=== PATIENT | female | born 1985 | race Two or more races ===

== ENCOUNTER 2017-03-11 16:14 | Emergency (ER) | payer OTHER ==
[2017-03-11 16:30] VITALS: TEMP 97.3; BMI 24.6
--- NOTE | 2017-03-11 16:39 | PDOC ---
History of Present Illness - General History Source: Patient Exam Limitations: No Limitations <Randy Parker - Last Filed: 03/11/17 16:55> <Daya Hua - Last Filed: 03/11/17 19:48> - General Chief Complaint: Lightheaded Stated Complaint: DIZZINESS/6 MONTH Time Seen by Provider: 03/11/17 16:36 - History of Present Illness Initial Comments: 03/11/17 16:55 The patient is a 31 year old female , who is currently 30 weeks with no significant past medical history who presents to the emergency department with dizziness and lightheadedness. The patient also reports having a brief episode of intermittent SOB and palpitations for about 30 minutes after walking. She reports having similar episodes like these about 2-3 times. She denies recent fevers, chills, or headache. She denies recent nausea, vomit, diarrhea or constipation. She denies recent chest pain. She denies any vaginal bleeding or cramping. Allergies: NKA Past surgical history: None reported. Social history: Nonsmoker. Denies EtOH use and recreational drug use. (Randy Parker) Past History <Randy Parker - Last Filed: 03/11/17 16:55> - Past Medical History Other medical history: DENIES. - Psycho/Social/Smoking Cessation Hx Suicidal Ideation: No Smoking History: Never smoked <Daya Hua - Last Filed: 03/11/17 19:48> - Past Medical History Allergies/Adverse Reactions: Allergies Allergy/AdvReac Type Severity Reaction Status Date / Time No Known Allergies Allergy Verified 03/11/17 16:27 Home Medications: Ambulatory Orders Calcium Carbonate [Tums] 200 mg PO ASDIR 03/11/17 Iron 18 mg PO DAILY 03/11/17 Multivitamin [Poly-Vitamin] 1 each PO DAILY 03/11/17 Review of Systems - Review of Systems Able to Perform ROS?: Yes <Randy Parker - Last Filed: 03/11/17 16:55> <Daya Hua - Last Filed: 03/11/17 19:48> - Review of Systems Comments:: 03/11/17 16:55 CONSTITUTIONAL: Absent: fever, chills, diaphoresis, generalized weakness, malaise, loss of appetite HEENT: Absent: rhinorrhea, nasal congestion, throat pain, throat swelling, difficulty swallowing, mouth swelling, ear pain, eye pain, visual Changes CARDIOVASCULAR: Absent: chest pain, syncope, palpitations, irregular heart rate, lightheadedness , peripheral edema RESPIRATORY: +shortness of breath. Absent: cough, dyspnea with exertion, orthopnea, wheezing , stridor, hemoptysis GASTROINTESTINAL: Absent: abdominal pain, abdominal distension, nausea, vomiting, diarrhea, constipation, melena, hematochezia GENITOURINARY: Absent: dysuria, frequency, urgency, hesitancy, hematuria, flank pain, genital pain MUSCULOSKELETAL: Absent: myalgia, arthralgia, joint swelling SKIN: Absent: rash, itching, pallor HEMATOLOGIC/IMMUNOLOGIC: Absent: easy bleeding, easy bruising, lymphadenopathy, frequent infections ENDOCRINE: Absent: unexplained weight gain, unexplained weight loss, heat intolerance, cold intolerance NEUROLOGIC: +dizziness and lightheadedness. Absent: headache, focal weakness or paresthesias , unsteady gait, seizure, mental status changes, bladder or bowel incontinence PSYCHIATRIC: Absent: anxiety, depression, suicidal or homicidal ideation, hallucinations. (Randy Parker) *Physical Exam <Randy Parker - Last Filed: 03/11/17 16:55> <Daya Hua - Last Filed: 03/11/17 19:48> - Vital Signs Last Vital Signs Temp Pulse Resp BP Pulse Ox 97.3 F L 98 H 20 109/84 100 03/11/17 16:27 03/11/17 17:27 03/11/17 17:27 03/11/17 17:27 03/11/17 17:27 - Physical Exam Comments: 03/11/17 16:55 GENERAL: Well developed, well nourished. Awake and alert. No acute distress. HEENT: Normocephalic, atraumatic. PERRLA, EOMI. No conjunctival pallor. Sclera are non- icteric. Moist mucous membranes. Oropharynx is clear. NECK: Supple. Full ROM. No JVD. Carotid pulses 2+ and symmetric, without bruits. No thyromegaly. No lymphadenopathy. CARDIOVASCULAR: Regular rate and rhythm. No murmurs, rubs, or gallops. Distal pulses are 2+ and symmetric. PULMONARY: No evidence of respiratory distress. Lungs clear to auscultation bilaterally. No wheezing, rales or rhonchi. ABDOMINAL: +Turbulent belly. Soft. Non-tender. No rebound or guarding. No organomegaly. Normoactive bowel sounds. MUSCULOSKELETAL Normal range of motion at all joints. No bony deformities or tenderness. No CVA tenderness. EXTREMITIES: No cyanosis. No clubbing. No edema. No calf tenderness. SKIN: Warm and dry. Normal capillary refill. No rashes. No jaundice. NEUROLOGICAL: Alert, awake, appropriate. Cranial nerves 2-12 intact. No deficits to light touch and temperature in face, upper extremities and lower extremities. No motor deficits in the in face, upper extremities and lower extremities. Normoreflexic in the upper and lower extremities. Normal speech. Toes are down- going bilaterally. Gait is normal without ataxia. PSYCHIATRIC: Cooperative. Good eye contact. Appropriate mood and affect. (Randy Parker) ED Treatment Course - LABORATORY CBC & Chemistry Diagram: 03/11/17 16:53 03/11/17 18:30 <Daya Hua - Last Filed: 03/11/17 19:48> - ADDITIONAL ORDERS Additional order review: Laboratory Results 03/11/17 03/11/17 03/11/17 18:30 18:30 16:53 INR D-Dimer < 200 Sodium 136 Potassium 4.2 Chloride 103 Carbon Dioxide 25 Anion Gap 8 BUN 8 Creatinine 0.5 L Creat Clearance w eGFR > 60 Random Glucose 102 Calcium 8.3 L Total Bilirubin 0.4 AST 19 ALT 13 Alkaline Phosphatase 74 Creatine Kinase Troponin I Total Protein 6.0 L Albumin 3.0 L Urine Color Yellow Urine Appearance Clear Urine pH 7.0 Urine Protein Negative Urine Glucose (UA) Negative Urine Ketones Negative Urine Blood Negative Urine Nitrite Negative Urine Bilirubin Negative Urine Urobilinogen Negative Ur Leukocyte Esterase Trace H Urine RBC 1 Urine WBC 3 Ur Epithelial Cells Rare Urine Mucus Few Blood Type Antibody Screen 03/11/17 03/11/17 03/11/17 16:53 16:53 16:50 INR 0.94 D-Dimer Sodium Cancelled Potassium Cancelled Chloride Cancelled Carbon Dioxide Cancelled Anion Gap Cancelled BUN Cancelled Creatinine Cancelled Creat Clearance w eGFR Cancelled Random Glucose Cancelled Calcium Cancelled Total Bilirubin Cancelled AST Cancelled ALT Cancelled Alkaline Phosphatase Cancelled Creatine Kinase Cancelled Troponin I Cancelled Total Protein Cancelled Albumin Cancelled Urine Color Urine Appearance Urine pH Urine Protein Urine Glucose (UA) Urine Ketones Urine Blood Urine Nitrite Urine Bilirubin Urine Urobilinogen Ur Leukocyte Esterase Urine RBC Urine WBC Ur Epithelial Cells Urine Mucus Blood Type O POSITIVE Antibody Screen Negative 03/11/17 16:53 RBC 4.34 MCV 88.6 MCHC 33.5 RDW 13.8 MPV 11.0 Neutrophils % 70.3 Lymphocytes % 23.1 Monocytes % 5.7 Eosinophils % 0.5 Basophils % 0.4 - Medications Given in the ED: ED Medications Discontinued Medications Generic Name Dose Route Start Last Admin Trade Name Freq PRN Reason Stop Dose Admin Sodium Chloride 1,000 mls @ 1,000 mls/hr 03/11/17 17:10 03/11/17 17:22 Normal Saline - IV 03/11/17 18:09 1,000 mls/hr ASDIR STA Administration Medical Decision Making <Randy Parker - Last Filed: 03/11/17 16:55> <Daya Hua - Last Filed: 03/11/17 19:48> - Medical Decision Making 03/11/17 18:36 31-year-old female who is 30 weeks was walking and developed palpitations and felt short of breath. This happened 3 times before during this SHE DENIES ANY CHEST PAIN This is her first . . She is 1 para 0 Past surgical history -denies Past medical history -denies Allergies to medications,- denies Social history -she is , does not smoke or drink. ekg sinus tachycardia @ 115 bpm REVIEW OF LABS: mild leukocytosis cbc 13, no anemia,normal platelet count NEGATIVE D DIMER CHEMISTRIES_ electrolytes and glucose are wnl treatment- pt recieved IVfluids 03/11/17 19:26 spoke w L and D and we will discharge her from ER and send her for monitoring (Daya Hua) *DC/Admit/Observation/Transfer <Randy Parker - Last Filed: 03/11/17 16:55> <Daya Hua - Last Filed: 03/11/17 19:48> Diagnosis at time of Disposition: Shortness of breath - Discharge Dispostion Disposition: HOME Condition at time of disposition: Stable - Patient Instructions Printed Discharge Instructions: DI for Shortness of Breath, DI for - - Discomforts and Remedies Additional Instructions: please followup with your digital experience manager return for any worsening symptoms - Attestations Scribe Attestion: 03/11/17 16:55 Documentation prepared by Randy Parker, acting as medical cash poster for Daya Hua MD. (Keith,Randy)
[2017-03-11 17:02] LABS: BASOPHIL 0.4 % (0-2.0); EOSINOPHIL 0.5 % (0-4.5); MCH 29.7 pg (25.7-33.7); MCHC 33.5 g/dl (32.0-36.0); MEAN CELL VOLUME 88.6 fl (80-96); NEUTROPHILS 70.3 % (42.8-82.8); PLATELET COUNT 136 K/MM3 (134-434); RDW 13.8 % (11.6-15.6)
[2017-03-11] MEDS ORDERED: SODIUM CHLORIDE 1,000 ML IV STA (17:10)
[2017-03-11 17:14] LABS: INR 0.94 (0.82-1.09); PROTHROMBIN TIME (PATIENT) 10.3 SEC (9.98-11.88)
[2017-03-11 17:28] VITALS: BP 109/84; PULSE 98
[2017-03-11 18:42] LABS: URINE APPEARANCE CLEAR; URINE BILIRUBIN NEGATIVE (NEGATIVE); URINE BLOOD NEGATIVE (NEGATIVE); URINE COLOR YELLOW; URINE GLUCOSE (UA) NEGATIVE (NEGATIVE); URINE KETONE NEGATIVE (NEGATIVE); URINE NITRITE NEGATIVE (NEGATIVE); URINE PROTEIN NEGATIVE (NEGATIVE); URINE UROBILINOGEN NEGATIVE E.U./dl (0.2-1.0)
[2017-03-11 18:55] LABS: URINE LEUK ESTERASE TRACE (NEGATIVE)
[2017-03-11 18:56] LABS: URINE MUCUS FEW; URINE RBC 1 /hpf (0-3); URINE WBC 3 /hpf (3-5)
[2017-03-11 19:06] LABS: ALK PHOS 74 U/L (45-117); ANION GAP 8 (8-16); BILIRUBIN,TOTAL 0.4 mg/dL (0.2-1.0); CALCIUM 8.3 mg/dL (8.5-10.1); CO2 25 mmol/L (21-32); COCKROFT - GAULT 175.9415; CREATININE 0.5 mg/dL (0.55-1.02); GLUCOSE,RANDOM 102 mg/dL (74-106); SGOT/AST 19 U/L (15-37); SGPT/ALT 13 U/L (12-78)
--- NOTE | 2017-03-12 10:33 | EKG ---
Test Reason : Blood Pressure : / mmHG Vent. Rate : 115 BPM Atrial Rate : 115 BPM P-R Int : 116 ms QRS Dur : 062 ms QT Int : 302 ms P-R-T Axes : 064 052 010 degrees QTc Int : 417 ms SINUS TACHYCARDIA OTHERWISE NORMAL ECG NO PREVIOUS ECGS AVAILABLE Confirmed by LYDIA BUSH MD ([id number]) on 03/12/2017 10:33:33 AM Referred By: Confirmed By:LYDIA BUSH MD
== END 2017-03-26 11:34 | disposition home or self-care (01) ==
LOC: JER 16:14
PROC: 3E0337Z Introduction of Electrolytic and Water Balance Substance into Peripheral Vein, Percutaneous Approach (ICD-10-PCS; principal; 2017-03-11)
DX: O26.893 Other specified pregnancy related conditions, third trimester (principal); R06.02 Shortness of breath; Z3A.30 30 weeks gestation of pregnancy
CPT/HCPCS: 36415; 80053; 81003; 81015; 85025; 85379; 85610; 86850; 86900; 86901; 93005; 93010; 96360; 99284-25

== ENCOUNTER 2017-05-12 09:05 | Inpatient (IN) | payer OTHER ==
[2017-05-12 10:22] LABS: BASOPHIL 0.6 % (0-2.0); EOSINOPHIL 0.9 % (0-4.5); MCH 30.4 pg (25.7-33.7); MCHC 34.6 g/dl (32.0-36.0); MEAN PLT VOLUME 13.8 fl (7.5-11.1); NEUTROPHILS 51.8 % (42.8-82.8); RDW 13.1 % (11.6-15.6); WHITE BLOOD COUNT 8.7 K/mm3 (4.0-10.0)
[2017-05-12 10:34] LABS: URINE COLLECTION TIME 24 HOURS
[2017-05-12 10:44] LABS: INR 0.83 (0.82-1.09); PROTHROMBIN TIME (PATIENT) 9.1 SEC (9.98-11.88)
[2017-05-12 10:45] LABS: URIC ACID 4.9 mg/dL (2.6-7.2)
[2017-05-12 10:47] LABS: ACTIVATED PTT 27.2 SECONDS (26.9-34.4); ALBUMIN 2.5 g/dl (3.4-5.0); ALK PHOS 191 U/L (45-117); ANION GAP 9 (8-16); BILIRUBIN,TOTAL 0.3 mg/dL (0.2-1.0); CALCIUM 9.3 mg/dL (8.5-10.1); CO2 25 mmol/L (21-32); CREATININE 0.6 mg/dL (0.55-1.02); GLUCOSE,RANDOM 73 mg/dL (74-106); SGOT/AST 36 U/L (15-37); SGPT/ALT 25 U/L (12-78); TOT PROT 5.8 g/dl (6.4-8.2)
[2017-05-12 10:51] VITALS: BMI 26.1
[2017-05-12 10:51] LABS: URINE PROTEIN 129 mg/dl
[2017-05-12 10:53] LABS: URINE CREATININE 29.9 mg/dL (20-320)
[2017-05-12 10:54] LABS: CREATININE 0.6 mg/dL (0.55-1.02)
[2017-05-12] MEDS ORDERED: DINOPROSTONE 10 MG VAGINAL SUPPOSITORY VG ONE (11:02)
[2017-05-12] MEDS ORDERED: PROMETHAZINE HCL 25 MG/1 ML VIAL IVPUSH ONE (11:03)
[2017-05-12] MEDS ORDERED: BUTORPHANOL TARTRATE 1 MG/ML VIAL IVPUSH ONE (11:03)
[2017-05-12] MEDS ORDERED: LABETALOL HCL 100 MG TABLET (FP) PO ONE (11:04)
--- NOTE | 2017-05-12 11:18 | PN ---
Progress Note (short form) - Note Progress Note: cx 1 cm 25 vx -2 mi, fhr cat 1, irregular contraction, cervidil rba discussed. no headache , cervidil inserted
[2017-05-12] MEDS: DEXTROSE 5%-LACTATED RINGERS 1,000 ML IV SCH ×2 (11:30→18:10)
[2017-05-12 11:50] LABS: PLATELET COUNT 73 K/MM3 (134-434)
[2017-05-12] MEDS ORDERED: LABETALOL HCL 200 MG TABLET (FP) PO ONE (16:42)
[2017-05-12] MEDS ORDERED: LABETALOL HCL 200 MG TABLET (FP) PO STA (16:42)
--- NOTE | 2017-05-12 16:51 | HP ---
Past Medical History - Primary Care Physician PCP:: Darrick Leslie - Admission Chief Complaint: 38 weeks, PIH History of Present Illness: 31 yo f edc 05/22/17 38 weeks admitted with elevated BP and thrombocytopenia, proteinuria, , bp 132/102, no headache, no blurred vision, no RUQ pain History Source: Patient Limitations to Obtaining History: No Limitations - Past Medical History ...: 1 ...Para: 0 ...Term: 0 ...: 0 ...Spon : 0 ...Induced : 0 ...Multiple Gestation: 0 ...LMP: 08/19/16 ... Weeks Gestation by Dates: 38.0 ...EDC by Dates: 05/26/17 ...EDC by Sono: 05/22/17 - Past Surgical History Hx Myomectomy: No Hx Transabdominal Cerclage: No - Smoking History Smoking history: Never smoked Have you smoked in the past 12 months: No - Alcohol/Substance Use Hx Alcohol Use: No - Social History Usual Living Arrangement: Yes: Alone History of Recent Travel: No Home Medications - Allergies Allergies/Adverse Reactions: Allergies Allergy/AdvReac Type Severity Reaction Status Date / Time No Known Allergies Allergy Verified 05/12/17 11:12 - Home Medications Home Medications: Ambulatory Orders Iron 18 mg PO DAILY 03/11/17 Multivitamin [Poly-Vitamin] 1 each PO DAILY 03/11/17 Review of Systems - Review of Systems Constitutional: reports: No Symptoms Eyes: reports: No Symptoms HENT: reports: No Symptoms Neck: reports: No Symptoms Cardiovascular: reports: No Symptoms Respiratory: reports: No Symptoms Genitourinary: reports: No Symptoms Breasts: reports: No Symptoms Reported Musculoskeletal: reports: No Symptoms Integumentary: reports: No Symptoms Neurological: reports: No Symptoms Endocrine: reports: No Symptoms Hematology/Lymphatic: reports: No Symptoms Psychiatric: reports: No Symptoms Physical Exam - Maternity Vital Signs: Vital Signs Temperature 98.4 F 05/12/17 16:00 Pulse Rate 63 05/12/17 16:00 Respiratory Rate 18 05/12/17 16:00 Blood Pressure 154/97 05/12/17 16:00 O2 Sat by Pulse Oximetry (%) Constitutional: Yes: Well Nourished, No Distress, Calm Eyes: Yes: WNL, Conjunctiva Clear, EOM Intact HENT: Yes: WNL, Atraumatic, Normocephalic Neck: Yes: WNL, Supple, Trachea Midline Cardiovascular: Yes: WNL, Regular Rate and Rhythm Breast(s): Yes: WNL - Abdominal Exam/OB Fundal Height: 40 Number of Fetuses: Single Presentation: Vertex Contractions: Yes Regularity: Irregular Intensity: Unaware Monitor Mode: External Heart Rate Location: [facility] Category: I Accelerations: Uniform - Vaginal Exam/OB Vaginal Bleediing: No Speculum Exam: No Dilatation (cm): 1 cm Effacement (%): 25 Amniotic Membrane Status: Intact Presentation: Vertex/Position Station: -2 - Physical Exam Musculoskeletal: Yes: WNL Extremities: Yes: WNL Edema: No Edema: LLE: Trace, RLE: Trace Deep Tendon Reflex Grade: Normal +2 ...Motor Strength: WNL - Labs Lab Results: CBC, BMP 05/12/17 10:00 05/12/17 10:00 Problem List - Problems (1) with 38 completed weeks gestation Code(s): Z3A.38 - 38 WEEKS GESTATION OF (2) HELLP (hemolytic anemia/elev liver enzymes/low platelets in ) Code(s): O14.20 - HELLP SYNDROME (HELLP), UNSPECIFIED TRIMESTER Qualifiers: Trimester: third trimester Qualified Code(s): O14.23 - HELLP syndrome (HELLP), third trimester Assessment/Plan admit, monitor bp, , cervidil induction, labatalol prn, if symptomatic mgso4
--- NOTE | 2017-05-12 19:23 | PN ---
Progress Note (short form) - Note Progress Note: cx 1 cm 70 vx -2mi, fhr cat 1 ,no headache, no blurred visio , bp 143/98 plan cont monitor bp, cont induction Problem List - Problems (1) with 38 completed weeks gestation Code(s): Z3A.38 - 38 WEEKS GESTATION OF (2) HELLP (hemolytic anemia/elev liver enzymes/low platelets in ) Code(s): O14.20 - HELLP SYNDROME (HELLP), UNSPECIFIED TRIMESTER Qualifiers: Trimester: third trimester Qualified Code(s): O14.23 - HELLP syndrome (HELLP), third trimester
[2017-05-12] MEDS ORDERED: MAGNESIUM 4GM/H20 - 100 ML IVPB ONE (21:45)
[2017-05-12] MEDS ORDERED: DEXTROSE 5%-LACTATED RINGERS 1,000 ML IV SCH (21:45)
[2017-05-12] MEDS: MAGNESIUM SULFATE 20GM/500ML - 500 ML IVPB SCH ×2 (21:45→22:15)
[2017-05-12] MEDS: LABETALOL HCL 200 MG TABLET (FP) PO PRN (22:45)
[2017-05-13] MEDS ORDERED: NIFEdipine 10 MG CAPSULE (FP) PO ONE ×2 (00:30→13:00)
[2017-05-13] MEDS ORDERED: DEXTROSE 5%-LACTATED RINGERS 1,000 ML IV SCH ×3 (06:30→22:00)
[2017-05-13] MEDS: LABETALOL HCL 200 MG TABLET (FP) PO PRN ×2 (08:05→16:30)
--- NOTE | 2017-05-13 09:21 | PN ---
Progress Note (short form) - Note Progress Note: no head ache, no blurred vision, on Mg , cx 2 cm 75 vx -2 mi, fhr cat i. irregular contraction, will start on pitocin Last Vital Signs Temp Pulse Resp BP Pulse Ox 98.2 F 80 17 121/82 05/13/17 09:00 05/13/17 09:00 05/13/17 09:00 05/13/17 09:00 Problem List - Problems (1) with 38 completed weeks gestation Code(s): Z3A.38 - 38 WEEKS GESTATION OF (2) HELLP (hemolytic anemia/elev liver enzymes/low platelets in ) Code(s): O14.20 - HELLP SYNDROME (HELLP), UNSPECIFIED TRIMESTER Qualifiers: Trimester: third trimester Qualified Code(s): O14.23 - HELLP syndrome (HELLP), third trimester
[2017-05-13] MEDS ORDERED: OXYTOCIN 15 UNITS/ LR 250 ML 250 ML IVPB SCH (10:30)
[2017-05-13 12:28] LABS: BASOPHIL 0.4 % (0-2.0); EOSINOPHIL 0.3 % (0-4.5); MCH 30.3 pg (25.7-33.7); MCHC 34.2 g/dl (32.0-36.0); MEAN CELL VOLUME 88.7 fl (80-96); MEAN PLT VOLUME 12.2 fl (7.5-11.1); NEUTROPHILS 69.2 % (42.8-82.8); RDW 13.4 % (11.6-15.6); WHITE BLOOD COUNT 8.8 K/mm3 (4.0-10.0)
[2017-05-13 13:00] LABS: ALBUMIN 2.5 g/dl (3.4-5.0); ALK PHOS 191 U/L (45-117); ANION GAP 8 (8-16); BILIRUBIN,TOTAL 0.3 mg/dL (0.2-1.0); CALCIUM 8.2 mg/dL (8.5-10.1); CO2 24 mmol/L (21-32); CREATININE 0.6 mg/dL (0.55-1.02); GLUCOSE,RANDOM 86 mg/dL (74-106); SGOT/AST 35 U/L (15-37); SGPT/ALT 24 U/L (12-78); TOT PROT 5.9 g/dl (6.4-8.2)
[2017-05-13 13:20] LABS: PLATELET COMMENT2 NO CLOTTING DETECTED; PLATELET COUNT 62 K/MM3 (134-434); PLATELET ESTIMATE DECREASED (NORMAL)
[2017-05-13] MEDS ORDERED: CITRIC ACID/SODIUM CITRATE 30 ML UNIT-DOSE CUP PO ONE (19:30)
--- NOTE | 2017-05-13 19:30 | PN ---
Progress Note (short form) - Note Progress Note: cx 2 cm 75 vx -2 mi, bp cont to rise despite mgso4, procardia, [place] [address]. no dilation ,having regular strong contraction, advised c/s, rba discussed Problem List - Problems (1) with 38 completed weeks gestation Code(s): Z3A.38 - 38 WEEKS GESTATION OF (2) HELLP (hemolytic anemia/elev liver enzymes/low platelets in ) Code(s): O14.20 - HELLP SYNDROME (HELLP), UNSPECIFIED TRIMESTER Qualifiers: Trimester: third trimester Qualified Code(s): O14.23 - HELLP syndrome (HELLP), third trimester
[2017-05-13 19:51] LABS: BASOPHIL 0.7 % (0-2.0); EOSINOPHIL 0.2 % (0-4.5); MCHC 33.7 g/dl (32.0-36.0); MEAN PLT VOLUME 13.1 fl (7.5-11.1); NEUTROPHILS 77.5 % (42.8-82.8); PLATELET COUNT 62 K/MM3 (134-434); RDW 13.6 % (11.6-15.6)
[2017-05-13 20:50] LABS: PLATELET COMMENT2 NO CLUMPING NOTED; PLATELET COMMENT3 FEW GIANT PLTS; PLATELET ESTIMATE ADEQUATE (NORMAL)
[2017-05-13] MEDS ORDERED: morphine SULFATE/Preservative Free 0.5 MG/ML (1cc Syringe) SPIN ONE (20:53)
[2017-05-13] MEDS ORDERED: ONDANSETRON 4 MG/2 ML VIAL IVPB PRN (21:23)
[2017-05-13] MEDS ORDERED: IBUPROFEN 600 MG TABLET (FP) PO PRN (21:23)
[2017-05-13 21:34] LABS: ARTERIAL BLD GAS O2 SATURATION 21.2 % (90-98.9); ARTERIAL BLOOD GAS BASE EXCESS 0.4 meq/l (-2-2); ARTERIAL BLOOD GAS HCO3 28.2 meq/L (22-26); ARTERIAL BLOOD GAS pH 7.28 (7.35-7.45)
[2017-05-13 21:36] LABS: ARTERIAL BLOOD GAS PO2 15.1 mmHg (80-100)
[2017-05-13 21:40] LABS: VENOUS PH 7.37 (7.32-7.42)
[2017-05-13 21:41] LABS: VENOUS BLOOD GAS HCO3 26.7 meq/L (19-25)
[2017-05-13] MEDS ORDERED: BENZOCAINE 20% 57 GM BOTTLE TP PRN (21:46)
[2017-05-13] MEDS ORDERED: WITCH HAZEL 50% (TUCKS) 40 PAD/JAR PAD TP PRN (21:46)
[2017-05-13] MEDS ORDERED: BENZOCAINE 28 GM HEMORRHOIDAL OINTMENT PR PRN (21:46)
[2017-05-13] MEDS ORDERED: oxyCODONE HCL 5 MG TABLET PO PRN (21:46)
[2017-05-13] MEDS ORDERED: METHYLERGONOVINE MALEATE 0.2 MG/1 ML AMP IM PRN (21:46)
[2017-05-13] MEDS ORDERED: diphenhydrAMINE HCL 25 MG CAPSULE (FP) PO PRN (21:46)
[2017-05-13] MEDS ORDERED: LABETALOL HCL 200 MG TABLET (FP) PO PRN (21:53)
[2017-05-13] MEDS ORDERED: OXYTOCIN 20 UNITS in 0.9% NS 1,000 ML IV SCH ×2 (22:00→23:00)
[2017-05-13] MEDS: MAGNESIUM SULFATE 20GM/500ML - 500 ML IVPB SCH (23:15)
[2017-05-14] MEDS: ACETAMINOPHEN 1000 MG/100 ML VIAL (NON FORMULARY) IVPB PRN ×2 (01:20→11:30)
[2017-05-14] MEDS: CEFAZOLIN (PRE-DOCKED) 50 ML IVPB SCH ×2 (02:00→10:00)
[2017-05-14] MEDS ORDERED: NIFEdipine E.R. 30 MG TABLET (FP) PO ONE (02:45)
[2017-05-14 07:12] LABS: BASOPHIL 0.2 % (0-2.0); EOSINOPHIL 0.1 % (0-4.5); MCH 30.5 pg (25.7-33.7); MCHC 34.3 g/dl (32.0-36.0); MEAN PLT VOLUME 11.7 fl (7.5-11.1); NEUTROPHILS 73.8 % (42.8-82.8); RDW 13.8 % (11.6-15.6)
[2017-05-14 07:37] LABS: ALBUMIN 1.9 g/dl (3.4-5.0); ANION GAP 9 (8-16); CALCIUM 7.1 mg/dL (8.5-10.1); CO2 25 mmol/L (21-32); GLUCOSE,RANDOM 78 mg/dL (74-106); SGOT/AST 127 U/L (15-37); SGPT/ALT 61 U/L (12-78)
[2017-05-14 07:39] LABS: ALK PHOS 150 U/L (45-117); BILIRUBIN,TOTAL 0.5 mg/dL (0.2-1.0); CREATININE 0.7 mg/dL (0.55-1.02); TOT PROT 4.6 g/dl (6.4-8.2)
[2017-05-14] MEDS: LABETALOL HCL 200 MG, LABETALOL HCL 100 MG PO PRN ×2 (07:40→22:04)
[2017-05-14 08:57] LABS: BASOPHIL 0.3 % (0-2.0); EOSINOPHIL 0.2 % (0-4.5); MCH 30.1 pg (25.7-33.7); MCHC 33.7 g/dl (32.0-36.0); MEAN CELL VOLUME 89.3 fl (80-96); MEAN PLT VOLUME 12.4 fl (7.5-11.1); NEUTROPHILS 72.4 % (42.8-82.8); RDW 13.9 % (11.6-15.6); WHITE BLOOD COUNT 13.9 K/mm3 (4.0-10.0)
[2017-05-14 09:20] LABS: ALBUMIN 2.2 g/dl (3.4-5.0); ALK PHOS 155 U/L (45-117); ANION GAP 10 (8-16); BILIRUBIN,TOTAL 0.5 mg/dL (0.2-1.0); CALCIUM 7.1 mg/dL (8.5-10.1); CO2 25 mmol/L (21-32); CREATININE 0.7 mg/dL (0.55-1.02); GLUCOSE,RANDOM 76 mg/dL (74-106); MAGNESIUM 5.6 mg/dL (1.8-2.4); SGOT/AST 131 U/L (15-37); SGPT/ALT 64 U/L (12-78)
--- NOTE | 2017-05-14 10:44 | CON.NEP ---
Consult Consult Specialty:: Nephrology (Lv/Dominic) Referred by:: Dr. Davila Reason for Consultation:: Hypertension - History of Present Illness Chief Complaint: /Hypertension History of Present Illness: 31 year old woman with no signficant PMhx presents at 38 weeks gestation with elevated BP and found to have HELLP syndrome now s/p with continued hypertension. Pt denies any Hx of hypertension and was not on antihypertensive meds. Denies any family Hx of hypertension. No NSAID use, no tobacco. S/p Mg Sulfate IV, Labetalol and Nifedipine. Gained 30 lbs during . No GARCIA, chest pain, seizures, ABd pain, N/V/D. - History Source History Provided By: Patient Limitations to Obtaining History: No Limitations - Alcohol/Substance Use Hx Alcohol Use: No - Smoking History Smoking history: Never smoked Have you smoked in the past 12 months: No - Social History History of Recent Travel: No Home Medications - Allergies Allergies/Adverse Reactions: Allergies Allergy/AdvReac Type Severity Reaction Status Date / Time No Known Allergies Allergy Verified 05/12/17 11:12 - Home Medications Home Medications: Ambulatory Orders Iron 18 mg PO DAILY 03/11/17 Multivitamin [Poly-Vitamin] 1 each PO DAILY 03/11/17 Family Disease History - Family Disease History Family History: Unremarkable Review of Systems - Review of Systems Constitutional: denies: Chills, Fever, Lethargy, Loss of Appetite, Malaise Eyes: reports: No Symptoms HENT: reports: No Symptoms Neck: reports: No Symptoms Cardiovascular: reports: No Symptoms Respiratory: reports: No Symptoms Gastrointestinal: reports: No Symptoms Genitourinary: reports: No Symptoms Neurological: reports: No Symptoms Endocrine: reports: No Symptoms Nephrology Consult - Height Height: 5 ft 5 in - Weight Weight: 157 lb - BMI Body Mass Index (BMI): 26.1 - Lab Results CBC,BMP: CBC, BMP 05/14/17 08:50 05/14/17 08:50 Anion Gap: Anion Gap Anion Gap 10 (8-16) 05/14/17 08:50 - Physical Examination Vital Signs: Vital Signs Temperature 98.9 F 05/14/17 08:00 Pulse Rate 77 05/14/17 09:00 Respiratory Rate 18 05/14/17 09:00 Blood Pressure 121/79 05/14/17 09:00 O2 Sat by Pulse Oximetry (%) 99 05/13/17 22:30 Constitutional: Yes: No Distress, Calm Eyes: Yes: Conjunctiva Clear HENT: Yes: Atraumatic, Normocephalic Neck: Yes: Supple Cardiovascular: Yes: Regular Rate and Rhythm, S1, S2. No: Bruit, JVD, Murmur, Rub Respiratory: Yes: Regular, CTA Bilaterally. No: Cough, Rales, SOB, SOB on Exertion Gastrointestinal: Yes: Normal Bowel Sounds, Soft. No: Tenderness Edema: Yes Edema: LLE: Trace, RLE: Trace Neurological: Yes: Alert, Oriented Problem List - Problems (1) HELLP (hemolytic anemia/elev liver enzymes/low platelets in ) Code(s): O14.20 - HELLP SYNDROME (HELLP), UNSPECIFIED TRIMESTER Qualifiers: Trimester: third trimester Qualified Code(s): O14.23 - HELLP syndrome (HELLP), third trimester (2) with 38 completed weeks gestation Code(s): Z3A.38 - 38 WEEKS GESTATION OF (3) hypertension Code(s): O16.5 - UNSPECIFIED MATERNAL HYPERTENSION, COMP THE PUERPERIUM Assessment/Plan 31 year old woman with no signficant PMhx presents at 38 weeks gestation with elevated BP and found to have HELLP syndrome now s/p with continued hypertension. # Hypertension/HELLP Syndrome (Thrombocytopenia/Elevated Liver Enzymes /Proteinuria) s/p C section last night already treated with IV mag Continue Labetalol 300mg Q6h PRN for SBP > 140 or DBP > 90 Low salt diet Avoid NSAIDs Trend BP Trend Plt counts and LFT's no acute indication for transfusion pain cotrol Thank you Jostin Alfaro DO
[2017-05-14 10:46] LABS: PLATELET COUNT 51 K/MM3 (134-434); PLATELET ESTIMATE DECREASED (NORMAL)
[2017-05-14 10:47] LABS: PLATELET COUNT 53 K/MM3 (134-434); PLATELET ESTIMATE DECREASED (NORMAL)
--- NOTE | 2017-05-14 11:01 | PN ---
Progress Note (short form) - Note Progress Note: Post op day#1.S/P C section under spinal anesthesia with duramorph uneventful.Patient stable and has little pain for which she is on medication.No any anesthesia related problem.Patient DC from the anesthesia care.
--- NOTE | 2017-05-14 14:34 | PN ---
Progress Note (short form) - Note Progress Note: pod 1 severe pih, HELLP syndrome, no c/o no headache, no blurred vision, CBC, BMP 05/14/17 08:50 05/14/17 08:50 Last Vital Signs Temp Pulse Resp BP Pulse Ox 98.1 F 66 18 126/83 99 05/14/17 14:06 05/14/17 14:06 05/14/17 14:06 05/14/17 14:06 05/13/17 22:30 abdomen soft, mild incisional tenderness , no RUQ tenderness ,BS present incision dry, clean, no oozing no excess vaginal bleeding impression, HELLP, BP stablizing, thrombocytopenia , no active bleeding , repeat cbc in am monitor BP Problem List - Problems (1) with 38 completed weeks gestation Code(s): Z3A.38 - 38 WEEKS GESTATION OF (2) HELLP (hemolytic anemia/elev liver enzymes/low platelets in ) Code(s): O14.20 - HELLP SYNDROME (HELLP), UNSPECIFIED TRIMESTER Qualifiers: Trimester: third trimester Qualified Code(s): O14.23 - HELLP syndrome (HELLP), third trimester
[2017-05-14] MEDS: oxyCODONE HCL 5 MG TABLET PO PRN ×2 (17:23→22:07)
[2017-05-14] MEDS: ACETAMINOPHEN 325 MG TABLET (FP) PO PRN ×2 (17:23→22:09)
[2017-05-14] MEDS: SIMETHICONE 80 MG TAB.CHEW (FP) PO PRN (17:24)
[2017-05-14] MEDS ORDERED: BISACODYL 10 MG SUPP.RECT RC PRN (21:49)
[2017-05-15] MEDS: LABETALOL HCL 200 MG, LABETALOL HCL 100 MG PO PRN ×3 (06:14→22:20)
[2017-05-15] MEDS: SIMETHICONE 80 MG TAB.CHEW (FP) PO PRN ×2 (07:32→17:10)
[2017-05-15] MEDS: oxyCODONE HCL 5 MG TABLET PO PRN ×2 (07:32→17:10)
[2017-05-15] MEDS: ACETAMINOPHEN 325 MG TABLET (FP) PO PRN ×2 (07:32→17:11)
[2017-05-15 08:17] LABS: BASOPHIL 0.4 % (0-2.0); EOSINOPHIL 0.6 % (0-4.5); MCH 30.2 pg (25.7-33.7); MCHC 33.7 g/dl (32.0-36.0); MEAN CELL VOLUME 89.8 fl (80-96); NEUTROPHILS 75.7 % (42.8-82.8); PLATELET COUNT 61 K/MM3 (134-434); RDW 13.7 % (11.6-15.6); WHITE BLOOD COUNT 12.9 K/mm3 (4.0-10.0)
[2017-05-15 08:27] LABS: MAGNESIUM 2.8 mg/dL (1.8-2.4)
[2017-05-15 10:00] LABS: ALBUMIN 1.8 g/dl (3.4-5.0); ALK PHOS 141 U/L (45-117); ANION GAP 9 (8-16); BILIRUBIN,TOTAL 0.4 mg/dL (0.2-1.0); CALCIUM 7.4 mg/dL (8.5-10.1); CO2 23 mmol/L (21-32); CREATININE 0.5 mg/dL (0.55-1.02); GLUCOSE,RANDOM 71 mg/dL (74-106); SGOT/AST 56 U/L (15-37); SGPT/ALT 37 U/L (12-78); TOT PROT 4.7 g/dl (6.4-8.2)
[2017-05-15] MEDS ORDERED: DIPHTH,PERTUSS(ACELL),TET 0.5 ML DISP.SYRIN IM ONE (10:00)
--- NOTE | 2017-05-15 13:09 | OP ---
DATE OF OPERATION: 05/13/2017 PREOPERATIVE DIAGNOSIS: , 38 weeks, severe preeclampsia with HELLP (hemolysis, elevated liver enzymes, and low platelet count) syndrome, failure of Cervidil and Pitocin induction. POSTOPERATIVE DIAGNOSIS: , 38 weeks, severe preeclampsia with HELLP (hemolysis, elevated liver enzymes, and low platelet count) syndrome, failure of Cervidil and Pitocin induction. PROCEDURE: Primary low segment transverse section. SURGEON: Darrick Leslie MD ECONOMETRICS PROFESSOR: AUTUMN Schulz ANESTHESIA: Spinal. ANESTHESIOLOGIST: Diallo Edwards MD ESTIMATED BLOOD LOSS: 500 mL. FINDING: Live baby boy, Apgars 9 and 9. OPERATION: The patient was taken to the operating room, had adequate spinal anesthesia. Abdomen and perineum were prepped and draped. Pfannenstiel abdominal skin incision was made. Abdominal wall was cut layer by layer, until peritoneum was exposed and incised. Upon entering the abdominal cavity, lower uterine segment was identified, and uterovesical fold of peritoneum was established, bladder was pushed down. Then, with the lower blade of the Kevin retractor in the pelvis, a low transverse uterine incision was made. Incision extended laterally. Amniotic sac was entered. Minimal fluid was seen, clear fluid. Head delivered, nasopharynx was suctioned, and live baby boy was delivered. Placenta was delivered manually. Uterine cavity was cleaned of all remaining tissue. Uterine incision was closed in 2 layers, 1st layer with 0 Biosyn continuous suture, the 2nd layer with 0 Biosyn imbricating the 1st layer. Bladder flap was closed with 0 Biosyn continuous suture. Both tubes and ovaries were checked, were normal. No active bleeding was seen. All the lap pad, sponge, and instrument counts were correct. Peritoneum was closed with 0 Biosyn continuous suture, muscles were brought together with interrupted sutures of 0 Biosyn, fascia was closed with 0 Biosyn continuous suture, subcutaneous fat with interrupted suture of 0 Biosyn, and the skin was closed with aurelia. Patient tolerated the procedure well, left the OR in good condition. Grabiel [id number]
--- NOTE | 2017-05-15 13:26 | PN ---
Progress Note (short form) - Note Progress Note: Renal Follow up for hypertension Pt seen and examined at the bedside no acute complaints BP was above goal this am, required PO labetalol no dizziness, lightheadedness, GARCIA, chest pain Vital Signs Temperature 98.9 F 05/15/17 06:00 Pulse Rate 78 05/15/17 06:05 Respiratory Rate 18 05/15/17 06:05 Blood Pressure 142/91 05/15/17 06:05 O2 Sat by Pulse Oximetry (%) 99 05/13/17 22:30 Intake & Output 05/12/17 05/13/17 05/14/17 05/15/17 23:59 23:59 23:59 23:59 Intake Total 1625 3873 1315 Output Total 850 3500 1660 Balance 775 373 -345 Weight 157 lb 157 lb Gen: NAD Ext: Trace edema CBC, BMP 05/15/17 07:50 05/15/17 07:50 Current Medications Acetaminophen (Tylenol -) 650 mg PO Q4H PRN PRN Reason: FEVER OR PAIN Last Admin: 05/15/17 07:32 Dose: 650 mg Benzocaine (Americaine Ointment -) 1 applic [place] PRN PRN PRN Reason: PAIN Benzocaine (Americaine 20% [place] -) 1 spray TP PRN PRN PRN Reason: PAIN Bisacodyl (Dulcolax Suppository -) 10 mg RC PRN PRN PRN Reason: CONSTIPATION Diphenhydramine HCl (Benadryl Injection -) 25 mg IVPUSH Q4H PRN PRN Reason: Pruritis Diphenhydramine HCl (Benadryl -) 25 mg PO Q8H PRN PRN Reason: FOR ITCHING Last Admin: 05/14/17 22:07 Dose: 25 mg Dextrose/Lactated Ringer's (D5-Lr -) 1,000 mls @ 125 mls/hr IV ASDIR NATHALIE Ibuprofen (Motrin -) 600 mg PO Q4H PRN PRN Reason: PAIN Labetalol HCl 200 mg/ (Labetalol HCl 100 mg) 300 mg PO Q6H PRN PRN Reason: BP > 140/90 Last Admin: 05/15/17 06:14 Dose: 300 mg Methylergonovine Maleate (Methergine Injection -) 0.2 mg IM Q4H PRN PRN Reason: EXCESSIVE BLEEDING Oxycodone HCl (Roxicodone -) 5 mg PO Q4H PRN PRN Reason: PAIN LEVEL 1-5 Last Admin: 05/15/17 07:32 Dose: 5 mg Oxycodone HCl (Roxicodone -) 10 mg PO Q4H PRN PRN Reason: PAIN LEVEL 6-10 Senna/Docusate Sodium (Pericolace -) 2 tablet PO HS PRN PRN Reason: CONSTIPATION Simethicone (Mylicon -) 80 mg PO Q4H PRN PRN Reason: GAS Last Admin: 05/15/17 07:32 Dose: 80 mg Witch Ellie/Glycerin (Tucks Pads -) 1 pad TP PRN PRN PRN Reason: PAIN a/P 31 year old woman with no signficant PMhx presents at 38 weeks gestation with elevated BP and found to have HELLP syndrome now s/p with continued hypertension. # Hypertension/HELLP Syndrome (Thrombocytopenia/Elevated Liver Enzymes /Proteinuria) s/p C section, now POD #2 BP above gaol this am continue Labetalol 300mg Q6h PRN LFTs improving plt counts still low but stable continue inpatient monitoring Thank you Jostin Alfaro DO Problem List - Problems (1) HELLP (hemolytic anemia/elev liver enzymes/low platelets in ) Code(s): O14.20 - HELLP SYNDROME (HELLP), UNSPECIFIED TRIMESTER Qualifiers: Trimester: third trimester Qualified Code(s): O14.23 - HELLP syndrome (HELLP), third trimester (2) with 38 completed weeks gestation Code(s): Z3A.38 - 38 WEEKS GESTATION OF (3) hypertension Code(s): O16.5 - UNSPECIFIED MATERNAL HYPERTENSION, COMP THE PUERPERIUM
[2017-05-15] MEDS ORDERED: LABETALOL HCL 100 MG TABLET (FP) ONE (16:52)
[2017-05-15] MEDS ORDERED: LABETALOL HCL 200 MG TABLET (FP) ONE (16:52)
[2017-05-15] MEDS ORDERED: SENNOSIDES/DOCUSATE COMBO (SENNA PLUS) TABLET (UD) PO PRN (22:00)
[2017-05-16] MEDS ORDERED: LABETALOL HCL 100 MG TABLET (FP) ONE ×3 (05:38→20:56)
[2017-05-16] MEDS ORDERED: LABETALOL HCL 200 MG TABLET (FP) ONE ×3 (05:38→20:57)
[2017-05-16] MEDS: LABETALOL HCL 200 MG, LABETALOL HCL 100 MG PO PRN ×3 (05:49→21:04)
[2017-05-16] MEDS: oxyCODONE HCL 5 MG TABLET PO PRN ×2 (07:56→16:46)
[2017-05-16] MEDS: ACETAMINOPHEN 325 MG TABLET (FP) PO PRN ×2 (07:58→16:46)
[2017-05-16] MEDS: SIMETHICONE 80 MG TAB.CHEW (FP) PO PRN ×2 (07:59→16:47)
[2017-05-16 08:30] LABS: BASOPHIL 0.5 % (0-2.0); EOSINOPHIL 1.2 % (0-4.5); MCH 30.6 pg (25.7-33.7); MCHC 33.9 g/dl (32.0-36.0); MEAN CELL VOLUME 90.3 fl (80-96); MEAN PLT VOLUME 11.4 fl (7.5-11.1); PLATELET COUNT 77 K/MM3 (134-434); RDW 13.7 % (11.6-15.6); WHITE BLOOD COUNT 9.9 K/mm3 (4.0-10.0)
--- NOTE | 2017-05-16 12:06 | PN ---
Post Progress Note - Subjective Subjective: 31 yo Para 1, status post primary , seen and evaluated. She denies any headache, abdominal pain nor blurry vision. Blood pressure is still elevated. Post Day: 3 Type of Delivery: Primary C/S Vital Signs: Vital Signs Temperature 99.5 F 05/16/17 07:45 Pulse Rate 79 05/16/17 07:45 Respiratory Rate 20 05/16/17 07:45 Blood Pressure 132/85 05/16/17 07:47 O2 Sat by Pulse Oximetry (%) 99 05/13/17 22:30 Breast Exam: Yes: Soft Uterus: Yes: Fundus Firm Incision: Yes: [place] intact Abdomen/GI: Yes: Abdomen soft, Tolerating PO Lochia: Yes: Rubra Lochia, amount: Small Extremities: Yes: Calves non-tender Perineum: Yes: Intact Activity: Ambulating - Labs Labs: CBC WBC 9.9 K/mm3 (4.0-10.0) 05/16/17 07:00 RBC 3.40 M/mm3 (3.60-5.2) L 05/16/17 07:00 Hgb 10.4 GM/dL (10.7-15.3) L 05/16/17 07:00 Hct 30.7 % (32.4-45.2) L 05/16/17 07:00 MCV 90.3 fl (80-96) 05/16/17 07:00 MCH 30.6 pg (25.7-33.7) 05/16/17 07:00 MCHC 33.9 g/dl (32.0-36.0) 05/16/17 07:00 RDW 13.7 % (11.6-15.6) 05/16/17 07:00 Plt Count 77 K/MM3 (134-434) L D 05/16/17 07:00 MPV 11.4 fl (7.5-11.1) H 05/16/17 07:00 Neutrophils % 75.0 % (42.8-82.8) 05/16/17 07:00 Lymphocytes % 17.0 % (8-40) 05/16/17 07:00 Monocytes % 6.3 % (3.8-10.2) 05/16/17 07:00 Eosinophils % 1.2 % (0-4.5) D 05/16/17 07:00 Basophils % 0.5 % (0-2.0) 05/16/17 07:00 Differential Comment Slide scanned 05/13/17 12:15 Platelet Estimate Decreased (NORMAL) 05/14/17 08:50 Platelet Comment No clumping noted 05/14/17 08:50 Platelet Comment No clumping noted 05/13/17 19:40 Retic Count 2.56 % (0.5-1.5) H 05/12/17 10:15 Haptoglobin < 10 mg/dL (34-200) L 05/12/17 10:00 Problem List - Problems (1) Status post primary low transverse section Code(s): Z98.891 - HISTORY OF UTERINE SCAR FROM PREVIOUS SURGERY Assessment/Plan Status post primary Status post HELLP syndrome Management as per Nephrology Consider D/C home with Labetalol in am.
--- NOTE | 2017-05-16 12:17 | PN ---
Progress Note (short form) - Note Progress Note: Renal Follow up for hypertension Pt seen and examined at the bedside no acute complaints BP elevated this am, got Labetalol at 5:30 am no syed, chest pain, sob, blurry vision Vital Signs Temperature 99.5 F 05/16/17 07:45 Pulse Rate 79 05/16/17 07:45 Respiratory Rate 20 05/16/17 07:45 Blood Pressure 132/85 05/16/17 07:47 O2 Sat by Pulse Oximetry (%) 99 05/13/17 22:30 Intake & Output 05/13/17 05/14/17 05/15/17 05/16/17 23:59 23:59 23:59 23:59 Intake Total 3873 1315 480 520 Output Total 3500 1660 1900 800 Balance 373 -942 -9050 -280 Weight 157 lb Gen: NAD Ext: Trace edema CBC, BMP 05/16/17 07:00 05/15/17 07:50 Laboratory Tests 05/15/17 14:20 Magnesium 2.7 H Current Medications Acetaminophen (Tylenol -) 650 mg PO Q4H PRN PRN Reason: FEVER OR PAIN Last Admin: 05/16/17 07:58 Dose: 650 mg Benzocaine (Americaine Ointment -) 1 applic [place] PRN PRN PRN Reason: PAIN Benzocaine (Americaine 20% [place] -) 1 spray TP PRN PRN PRN Reason: PAIN Bisacodyl (Dulcolax Suppository -) 10 mg RC PRN PRN PRN Reason: CONSTIPATION Diphenhydramine HCl (Benadryl Injection -) 25 mg IVPUSH Q4H PRN PRN Reason: Pruritis Diphenhydramine HCl (Benadryl -) 25 mg PO Q8H PRN PRN Reason: FOR ITCHING Last Admin: 05/14/17 22:07 Dose: 25 mg Ibuprofen (Motrin -) 600 mg PO Q4H PRN PRN Reason: PAIN Labetalol HCl 200 mg/ (Labetalol HCl 100 mg) 300 mg PO Q6H PRN PRN Reason: BP > 140/90 Last Admin: 05/16/17 05:49 Dose: 300 mg Methylergonovine Maleate (Methergine Injection -) 0.2 mg IM Q4H PRN PRN Reason: EXCESSIVE BLEEDING Oxycodone HCl (Roxicodone -) 5 mg PO Q4H PRN PRN Reason: PAIN LEVEL 1-5 Last Admin: 05/16/17 07:56 Dose: 5 mg Oxycodone HCl (Roxicodone -) 10 mg PO Q4H PRN PRN Reason: PAIN LEVEL 6-10 Senna/Docusate Sodium (Pericolace -) 2 tablet PO HS PRN PRN Reason: CONSTIPATION Last Admin: 05/15/17 21:32 Dose: 2 tablet Simethicone (Mylicon -) 80 mg PO Q4H PRN PRN Reason: GAS Last Admin: 05/16/17 07:59 Dose: 80 mg Witch Ellie/Glycerin (Tucks Pads -) 1 pad TP PRN PRN PRN Reason: PAIN a/P 31 year old woman with no signficant PMhx presents at 38 weeks gestation with elevated BP and found to have HELLP syndrome now s/p with continued hypertension. # Hypertension/HELLP Syndrome (Thrombocytopenia/Elevated Liver Enzymes /Proteinuria) BP remains mildly elevated will continue Labetalol 300mg Q6h prn plan for discharge in AM on PO labetalol with outpatient monitoring LFT's improved, Plt count improved Thank you Jostin Alfaro DO Problem List - Problems (1) HELLP (hemolytic anemia/elev liver enzymes/low platelets in ) Code(s): O14.20 - HELLP SYNDROME (HELLP), UNSPECIFIED TRIMESTER Qualifiers: Trimester: third trimester Qualified Code(s): O14.23 - HELLP syndrome (HELLP), third trimester (2) with 38 completed weeks gestation Code(s): Z3A.38 - 38 WEEKS GESTATION OF (3) hypertension Code(s): O16.5 - UNSPECIFIED MATERNAL HYPERTENSION, COMP THE PUERPERIUM
[2017-05-17] MEDS ORDERED: LABETALOL HCL 200 MG TABLET (FP) ONE (07:26)
[2017-05-17] MEDS ORDERED: LABETALOL HCL 100 MG TABLET (FP) ONE (07:26)
[2017-05-17] MEDS: SIMETHICONE 80 MG TAB.CHEW (FP) PO PRN (07:29)
[2017-05-17] MEDS: LABETALOL HCL 200 MG, LABETALOL HCL 100 MG PO PRN (07:29)
[2017-05-17] MEDS: ACETAMINOPHEN 325 MG TABLET (FP) PO PRN (07:29)
[2017-05-17 07:35] VITALS: TEMP 98.3
--- NOTE | 2017-05-17 10:53 | PN ---
Progress Note (short form) - Note Progress Note: Renal Follow up for hypertension Pt seen and examined at the bedside no complaints required labetalol this am and yesterday evening no GARCIA, dizziness, cp, sob, N/v Vital Signs Temperature 98.3 F 05/17/17 07:34 Pulse Rate 83 05/17/17 07:34 Respiratory Rate 18 05/17/17 07:34 Blood Pressure 141/98 05/17/17 07:34 O2 Sat by Pulse Oximetry (%) 99 05/13/17 22:30 Gen: NAD Ext: Trace edema CBC, BMP 05/16/17 07:00 05/15/17 07:50 Current Medications Acetaminophen (Tylenol -) 650 mg PO Q4H PRN PRN Reason: FEVER OR PAIN Last Admin: 05/17/17 07:29 Dose: 650 mg Benzocaine (Americaine Ointment -) 1 applic RI PRN PRN PRN Reason: PAIN Benzocaine (Americaine 20% [place] -) 1 spray TP PRN PRN PRN Reason: PAIN Bisacodyl (Dulcolax Suppository -) 10 mg RC PRN PRN PRN Reason: CONSTIPATION Diphenhydramine HCl (Benadryl Injection -) 25 mg IVPUSH Q4H PRN PRN Reason: Pruritis Diphenhydramine HCl (Benadryl -) 25 mg PO Q8H PRN PRN Reason: FOR ITCHING Last Admin: 05/14/17 22:07 Dose: 25 mg Ibuprofen (Motrin -) 600 mg PO Q4H PRN PRN Reason: PAIN Labetalol HCl 200 mg/ (Labetalol HCl 100 mg) 300 mg PO Q6H PRN PRN Reason: BP > 140/90 Last Admin: 05/17/17 07:29 Dose: 300 mg Methylergonovine Maleate (Methergine Injection -) 0.2 mg IM Q4H PRN PRN Reason: EXCESSIVE BLEEDING Senna/Docusate Sodium (Pericolace -) 2 tablet PO HS PRN PRN Reason: CONSTIPATION Last Admin: 05/15/17 21:32 Dose: 2 tablet Simethicone (Mylicon -) 80 mg PO Q4H PRN PRN Reason: GAS Last Admin: 05/17/17 07:29 Dose: 80 mg Witch Ellie/Glycerin (Tucks Pads -) 1 pad TP PRN PRN PRN Reason: PAIN a/P 31 year old woman with no signficant PMhx presents at 38 weeks gestation with elevated BP and found to have HELLP syndrome now s/p with continued hypertension. # Hypertension/HELLP Syndrome (Thrombocytopenia/Elevated Liver Enzymes /Proteinuria) LFTs and Plt counts improved pt is cleared to be discharged home with oral labetalol 300mg TID will follow as an outpatient and titrate medication low salt diet avoid nsaids office contact information provided Thank you Jostin Alfaro DO Problem List - Problems (1) HELLP (hemolytic anemia/elev liver enzymes/low platelets in ) Code(s): O14.20 - HELLP SYNDROME (HELLP), UNSPECIFIED TRIMESTER Qualifiers: Trimester: third trimester Qualified Code(s): O14.23 - HELLP syndrome (HELLP), third trimester (2) with 38 completed weeks gestation Code(s): Z3A.38 - 38 WEEKS GESTATION OF (3) hypertension Code(s): O16.5 - UNSPECIFIED MATERNAL HYPERTENSION, COMP THE PUERPERIUM
[2017-05-17 10:58] VITALS: BP 135/97; PULSE 74
--- NOTE | 2017-05-17 12:23 | PN ---
Post Progress Note - Subjective Subjective: no c/o headache incision pain 4-5/10 scale pt requests for discharge today Type of Delivery: Primary C/S Vital Signs: Vital Signs Temperature 98.3 F 05/17/17 07:34 Pulse Rate 74 05/17/17 10:57 Respiratory Rate 18 05/17/17 10:57 Blood Pressure 135/97 05/17/17 10:57 O2 Sat by Pulse Oximetry (%) 99 05/13/17 22:30 Breast Exam: Yes: Soft. No: Engorged Uterus: Yes: Fundus Firm, Fundus below umbilicus Incision: Yes: Other ([place] removed, wound healing satisfactory . steri strips used. nooozing. Edges well approximated). No: Redness, Oozing Abdomen/GI: Yes: Abdomen soft, Tender, Passing flatus, Tolerating PO (diet ). No: Abdominal Distention Lochia: Yes: Rubra Lochia, amount: Moderate Extremities: Yes: Calves non-tender Perineum: Yes: Intact Activity: Ambulating - Labs Labs: CBC WBC 9.9 K/mm3 (4.0-10.0) 05/16/17 07:00 RBC 3.40 M/mm3 (3.60-5.2) L 05/16/17 07:00 Hgb 10.4 GM/dL (10.7-15.3) L 05/16/17 07:00 Hct 30.7 % (32.4-45.2) L 05/16/17 07:00 MCV 90.3 fl (80-96) 05/16/17 07:00 MCH 30.6 pg (25.7-33.7) 05/16/17 07:00 MCHC 33.9 g/dl (32.0-36.0) 05/16/17 07:00 RDW 13.7 % (11.6-15.6) 05/16/17 07:00 Plt Count 77 K/MM3 (134-434) L D 05/16/17 07:00 MPV 11.4 fl (7.5-11.1) H 05/16/17 07:00 Neutrophils % 75.0 % (42.8-82.8) 05/16/17 07:00 Lymphocytes % 17.0 % (8-40) 05/16/17 07:00 Monocytes % 6.3 % (3.8-10.2) 05/16/17 07:00 Eosinophils % 1.2 % (0-4.5) D 05/16/17 07:00 Basophils % 0.5 % (0-2.0) 05/16/17 07:00 Differential Comment Slide scanned 05/13/17 12:15 Platelet Estimate Decreased (NORMAL) 05/14/17 08:50 Platelet Comment No clumping noted 05/14/17 08:50 Platelet Comment No clumping noted 05/13/17 19:40 Retic Count 2.56 % (0.5-1.5) H 05/12/17 10:15 Haptoglobin < 10 mg/dL (34-200) L 05/12/17 10:00 Assessment/Plan s/p c/section, s/p HELLP syndrome , post op Hypertension on po labetalol Dr Alfaro ok fo discharge on po labetalol . he will send prescription for her discharge today follow in the clinic & with Dr Alfaro
--- NOTE | 2017-05-18 15:31 | PATH ---
Surgical Pathology Report Patient Name: CHEIKH JURADO [facility]. Rec. #: [id number] /Age/Gender: 1985 (Age: 31) / F Account: [id number] Location: [facility] OBS/CAR DETAILER Taken: 05/13/2017 Received: 05/14/2017 Reported: 05/18/2017 Physicians: Darrick Leslie M.D. Specimen(s) Received PLACENTA Clinical History , 38 weeks gestation, preeclampsia Final Diagnosis PLACENTA, DELIVERY: FOCALLY DISRUPTED THIRD TRIMESTER PLACENTA WITH INFARCT, THREE VESSEL UMBILICAL CORD AND UNREMARKABLE PLACENTAL MEMBRANES. Electronically Signed Cong Gonzáles M.D. Gross Description The specimen is received fresh labeled placenta and is a 444 gram, 16.0 x 14.0 x 2.3 cm. placenta with attached membranes and umbilical cord. The attached membranes are wong, translucent with focal opacities and insert marginally. The umbilical cord measures 21 cm. in length and averages 1 cm. in diameter. The cord inserts eccentrically, 1 cm. to the nearest margin. No true knots or strictures are identified. Cut surface of the umbilical cord reveals 3 vessels. The surface is kearney-blue with minimal fibrin deposition and appropriate caliber vessels. The maternal surface is red-brown with focal defects. Sectioning reveals a 1.7 cm in greatest dimension wong intraparenchymal lesion. The remaining placental parenchyma is red-brown and spongy. Rn Triage sections are submitted in 4 cassettes as follows: 1-membrane roll and umbilical cord; 2-lesion; 3-4-full thickness sections of placenta. 05/16/2017 [facility]05/16/2017
== END 2017-05-17 13:00 | disposition home or self-care (01) | DRG 540 ==
LOC: JDEL 09:05 → JLDR 09:47 → J3W 05-14 13:19
PROVIDERS: ADMIT Obstetrics & Gynecology; ATTEND Obstetrics & Gynecology
PROC: 10D00Z1 Extraction of Products of Conception, Low, Open Approach (ICD-10-PCS; principal; 2017-05-13)
PROC: 3E0P7GC Introduction of Other Therapeutic Substance into Female Reproductive, Via Natural or Artificial Opening (ICD-10-PCS; 2017-05-13)
DX: O14.23 HELLP syndrome (HELLP), third trimester (principal); O16.5 Unspecified maternal hypertension, complicating the puerperium; O14.93 Unspecified pre-eclampsia, third trimester; O61.0 Failed medical induction of labor; Z3A.38 38 weeks gestation of pregnancy; Z37.0 Single live birth
CPT/HCPCS: 36415; 36600; 80053; 82575; 82803; 82977; 83010; 83735; 84156; 84550; 85025; 85044; 85610; 85730; 86593; 86850; 86900; 86901; 88307-TC; 90715

== ENCOUNTER 2019-01-20 02:15 | Inpatient (IN) | payer OTHER ==
[2019-01-20] MEDS ORDERED: DEXTROSE 5%-LACTATED RINGERS 1,000 ML IV SCH ×2 (02:20→18:45)
[2019-01-20 03:38] LABS: BASO % 0.4 % (0-2.0); EOS % 0.5 % (0-4.5); HEMATOCRIT 35.7 % (32.4-45.2); HEMOGLOBIN 12.5 GM/dL (10.7-15.3); LYMPH % 25.3 % (8-40); MCH 30.7 pg (25.7-33.7); MCHC 35.1 g/dl (32.0-36.0); MEAN CELL VOLUME 87.7 fl (80-96); MEAN PLT VOLUME 11.4 fl (7.5-11.1); MONO % 6.9 % (3.8-10.2); NEUT % 66.9 % (42.8-82.8); PLATELET COUNT 117 K/MM3 (134-434); RBC 4.07 M/mm3 (3.60-5.2); WHITE BLOOD COUNT 11.2 K/mm3 (4.0-10.0)
[2019-01-20] MEDS ORDERED: BUTORPHANOL TARTRATE 1 MG/ML VIAL IVPUSH ONE (03:43)
[2019-01-20] MEDS ORDERED: PROMETHAZINE HCL 25 MG/1 ML VIAL IVPUSH ONE (03:43)
--- NOTE | 2019-01-20 03:51 | HP ---
Past Medical History - Primary Care Physician PCP:: Darrick Leslie - Admission Chief Complaint: 40.5 weeks, previous c/s, labor History of Present Illness: 33 yo f 40.5 weeks, with one LST c/s ,in labor cx 1 cm 80 , vx -3 mi , fhr cat1 , regular contraction q 2 min, requesting , risks of uterine rupture, and maternal risks discussed , repeat c/s also discussed History Source: Patient Limitations to Obtaining History: No Limitations - Past Medical History ...: 2 ...Para: 1 ...Term: 1 ...: 0 ...Spon : 0 ...Induced : 0 ...Multiple Gestation: 0 ... Weeks Gestation by Dates: 40.5 ...EDC by Sono: 01/15/19 Heme/Onc: Yes: Thrombocytopenia - Past Surgical History Past Surgical History: Yes: Hx Myomectomy: No Hx Transabdominal Cerclage: No - Smoking History Smoking history: Never smoked Have you smoked in the past 12 months: No - Alcohol/Substance Use Hx Alcohol Use: No - Social History History of Recent Travel: No Home Medications - Allergies Allergies/Adverse Reactions: Allergies Allergy/AdvReac Type Severity Reaction Status Date / Time No Known Allergies Allergy Verified 05/12/17 11:12 - Home Medications Home Medications: Ambulatory Orders Iron 18 mg PO DAILY 03/11/17 Multivitamin [Poly-Vitamin] 1 each PO DAILY 03/11/17 Acetaminophen [Tylenol .Regular Strength -] 650 mg PO Q4H PRN #30 tablet Review of Systems - Review of Systems Constitutional: reports: No Symptoms Eyes: reports: No Symptoms HENT: reports: No Symptoms Neck: reports: No Symptoms Cardiovascular: reports: No Symptoms Respiratory: reports: No Symptoms Gastrointestinal: reports: No Symptoms Genitourinary: reports: No Symptoms Breasts: reports: No Symptoms Reported Musculoskeletal: reports: No Symptoms Integumentary: reports: No Symptoms Neurological: reports: No Symptoms Endocrine: reports: No Symptoms Hematology/Lymphatic: reports: No Symptoms Psychiatric: reports: No Symptoms Physical Exam - Maternity Constitutional: Yes: Well Nourished, No Distress, Calm Eyes: Yes: WNL, Conjunctiva Clear, EOM Intact HENT: Yes: WNL, Atraumatic, Normocephalic Neck: Yes: WNL, Supple, Trachea Midline Cardiovascular: Yes: WNL, Regular Rate and Rhythm Breast(s): Yes: WNL - Abdominal Exam/OB Fundal Height: 40 Number of Fetuses: Single Presentation: Vertex Contractions: Yes Regularity: Regular Intensity: Mod/Strong Monitor Mode: External Heart Rate Location: [facility] Category: I Accelerations: Uniform Decelerations: None - Vaginal Exam/OB Vaginal Bleediing: No Speculum Exam: Yes Dilatation (cm): 1 to 2 Effacement (%): 80 Amniotic Membrane Status: Intact Presentation: Transverse/Shoulder - Physical Exam Musculoskeletal: Yes: WNL Extremities: Yes: WNL Edema: Yes Edema: LLE: Trace, RLE: Trace Deep Tendon Reflex Grade: Normal +2 Psychiatric: Yes: WNL - Labs Lab Results: CBC, BMP 01/20/19 03:15 Hemorrhage Risk Assessment - Risk Factors Medium Risk Factors: Yes: Prior , uterine surgery,or multiple laparotomies Risk Score: 1 Risk Level: Medium Risk Problem List - Problems (1) Postmaturity , 40-42 weeks gestation Code(s): O48.0 - POST-TERM (2) Previous section complicating , antepartum condition or complication Code(s): O34.219 - MATERNAL CARE FOR UNSP TYPE SCAR FROM PREVIOUS DEL (3) Thrombocytopenia Code(s): D69.6 - THROMBOCYTOPENIA, UNSPECIFIED (4) Labor established Code(s): [id number] - Assessment/Plan trial of , risks discussed , fully aware of all risks FHM pain management GBS negative
[2019-01-20 03:52] LABS: INR 0.88 (0.83-1.09); PROTHROMBIN TIME (PATIENT) 10.4 SEC (9.7-13.0)
[2019-01-20 04:03] LABS: ANION GAP 8 MMOL/L (8-16); BLOOD UREA NITROGEN 8 mg/dL (7-18); CALCIUM 8.4 mg/dL (8.5-10.1); CHLORIDE 106 mmol/L (98-107); CO2 21 mmol/L (21-32); CREATININE 0.4 mg/dL (0.55-1.3); GLUCOSE,RANDOM 83 mg/dL (74-106); POTASSIUM 3.7 mmol/L (3.5-5.1); SODIUM 136 mmol/L (136-145)
[2019-01-20 04:19] VITALS: BMI 25.0
[2019-01-20 06:27] LABS: COCAINE, UR NEGATIVE ng/ml (CUTOFF=300); METHADONE, UR NEGATIVE ng/ml (CUTOFF=300); OPIATES, URI NEGATIVE ng/ml (CUTOFF=300); PHENCYCLIDINE,URINE NEGATIVE ng/ml (CUTOFF=25); URINE AMPHETAMINES NEGATIVE ng/ml (CUTOFF=500); URINE BARBITURATES NEGATIVE ng/ml (CUTOFF=200); URINE BENZODIAZEPINES NEGATIVE ng/ml (CUTOFF=200)
[2019-01-20] MEDS ORDERED: ELECTROLYTE-148 SOLN 500 ML IV ONE (07:20)
[2019-01-20] MEDS ORDERED: FENTANYL/BUPIVACAINE/NS/PF - PCEA - 50 ML DISP.SYRIN EP ONE ×3 (07:30→15:57)
[2019-01-20] MEDS ORDERED: BUPIVACAINE HCL/PF 0.25% (2.5MG/ML) 10 ML VIAL ONE (07:39)
[2019-01-20] MEDS: ELECTROLYTE-148 SOLN 1,000 ML IV SCH (08:25)
[2019-01-20] MEDS ORDERED: NALOXONE HCL 0.4 MG/ML VIAL IVPUSH PRN (09:57)
[2019-01-20] MEDS ORDERED: FENTANYL/BUPIVACAINE/NS/PF - PCEA - 50 ML DISP.SYRIN EP SCH (10:00)
[2019-01-20] MEDS ORDERED: OXYTOCIN 30 UNITS in 0.9% NS 30 UNIT/500 ML INFUS.BAG IVPB ONE (13:41)
[2019-01-20] MEDS ORDERED: OXYTOCIN 30 UNITS in 0.9% NS 30 UNIT/500 ML INFUS.BAG IVPB SCH (15:30)
[2019-01-20] MEDS ORDERED: LIDOCAINE HCL 1% PRESERVATIVE FREE - 30ML VIAL ONE (16:15)
--- NOTE | 2019-01-20 16:32 | PN ---
Progress Note (short form) - Note Progress Note: 235 pm cx 8 cm , 100 vx -1 arom, clear, fhr cat 1, regular contraction Problem List - Problems (1) Postmaturity , 40-42 weeks gestation Code(s): O48.0 - POST-TERM (2) Previous section complicating , antepartum condition or complication Code(s): O34.219 - MATERNAL CARE FOR UNSP TYPE SCAR FROM PREVIOUS DEL (3) Thrombocytopenia Code(s): D69.6 - THROMBOCYTOPENIA, UNSPECIFIED (4) Labor established Code(s): [id number] -
--- NOTE | 2019-01-20 16:33 | PN ---
Progress Note (short form) - Note Progress Note: cx full 100 vx 0 mr, fhr cat 1 wants to push Problem List - Problems (1) Postmaturity , 40-42 weeks gestation Code(s): O48.0 - POST-TERM (2) Previous section complicating , antepartum condition or complication Code(s): O34.219 - MATERNAL CARE FOR UNSP TYPE SCAR FROM PREVIOUS DEL (3) Thrombocytopenia Code(s): D69.6 - THROMBOCYTOPENIA, UNSPECIFIED (4) Labor established Code(s): [id number] -
[2019-01-20] MEDS ORDERED: LIDO 2%/EPI 1:200000 PRESRVFRE (20 ML SDVIAL) ONE (17:26)
[2019-01-20] MEDS ORDERED: CITRIC ACID/SODIUM CITRATE 30 ML UNIT-DOSE CUP PO ONE (17:26)
--- NOTE | 2019-01-20 17:26 | PN ---
Progress Note (short form) - Note Progress Note: cx full 100 vx 0, op, no descent with pushing, variable decel with good recovery , advsied c/s Problem List - Problems (1) Postmaturity , 40-42 weeks gestation Code(s): O48.0 - POST-TERM (2) Previous section complicating , antepartum condition or complication Code(s): O34.219 - MATERNAL CARE FOR UNSP TYPE SCAR FROM PREVIOUS DEL (3) Thrombocytopenia Code(s): D69.6 - THROMBOCYTOPENIA, UNSPECIFIED (4) Labor established Code(s): [id number] -
[2019-01-20] MEDS ORDERED: morphine SULFATE/Preservative Free 0.5 MG/ML (1cc Syringe) ONE ×4 (17:35)
[2019-01-20] MEDS ORDERED: KETOROLAC TROMETHAMINE 30 MG/1 ML VIAL ONE (17:35)
[2019-01-20] MEDS ORDERED: ceFAZolin SODIUM 1 GM VIAL ONE (17:42)
[2019-01-20] MEDS ORDERED: PHENYLEPHRINE HCL 10 MG/1 ML SINGLE DOSE VIAL ONE (17:46)
[2019-01-20] MEDS ORDERED: BENZOCAINE 20% 57 GM BOTTLE TP PRN (18:35)
[2019-01-20] MEDS ORDERED: IBUPROFEN 600 MG TABLET (FP) PO PRN (18:35)
[2019-01-20] MEDS ORDERED: SIMETHICONE 80 MG TAB.CHEW (FP) PO PRN (18:35)
[2019-01-20] MEDS ORDERED: BENZOCAINE 28 GM HEMORRHOIDAL OINTMENT PR PRN (18:35)
[2019-01-20] MEDS ORDERED: IBUPROFEN 800 MG/8 ML IJ IVPB PRN (18:35)
[2019-01-20] MEDS ORDERED: oxyCODONE HCL 5 MG TABLET PO PRN ×2 (18:35)
[2019-01-20] MEDS ORDERED: WITCH HAZEL 50% (TUCKS) 40 PAD/JAR PAD TP PRN (18:35)
[2019-01-20] MEDS ORDERED: diphenhydrAMINE HCL 25 MG CAPSULE (FP) PO PRN (18:35)
[2019-01-20] MEDS ORDERED: ONDANSETRON 4 MG/2 ML VIAL IVPUSH PRN (18:44)
[2019-01-20] MEDS ORDERED: OXYTOCIN 20 UNITS in 0.9% NS 20 UNIT/1,000 ML INFUS.BAG IV SCH (18:45)
[2019-01-20 18:52] LABS: VENOUS PH 7.29 (7.31-7.41); VENOUS PO2 21.4 mmHg (30-40)
[2019-01-20] MEDS ORDERED: GENTAMICIN SO4 80 MG/2 ML VIAL ONE (20:59)
[2019-01-20] MEDS: GENTAMICIN 80 MG PREMIXED IVPB 80 MG/100 ML BAG IVPB SCH (21:00)
[2019-01-20] MEDS: METHYLERGONOVINE MALEATE 0.2 MG/1 ML AMP IM PRN (21:24)
[2019-01-21] MEDS: CEFAZOLIN 1 GM/D5W 1 GM/50 ML BAG IVPB SCH ×3 (01:37→17:24)
[2019-01-21] MEDS ORDERED: METHYLERGONOVINE MALEATE 0.2 MG/1 ML AMP IM ONE ×2 (01:50→06:00)
[2019-01-21] MEDS: METHYLERGONOVINE MALEATE 0.2 MG/1 ML AMP IM PRN (01:54)
[2019-01-21] MEDS: GENTAMICIN 80 MG PREMIXED IVPB 80 MG/100 ML BAG IVPB SCH ×3 (02:31→18:25)
[2019-01-21] MEDS ORDERED: DEXTROSE 5%-LACTATED RINGERS 1,000 ML IV SCH (02:45)
[2019-01-21 02:49] LABS: BASO % 0.2 % (0-2.0); EOS % 0.1 % (0-4.5); HEMATOCRIT 26.2 % (32.4-45.2); LYMPH % 11.6 % (8-40); MCH 30.3 pg (25.7-33.7); MCHC 34.4 g/dl (32.0-36.0); MEAN CELL VOLUME 88.2 fl (80-96); MEAN PLT VOLUME 11.2 fl (7.5-11.1); MONO % 6.2 % (3.8-10.2); NEUT % 81.9 % (42.8-82.8); PLATELET COUNT 88 K/MM3 (134-434); RBC 2.97 M/mm3 (3.60-5.2); RDW 14.3 % (11.6-15.6); WHITE BLOOD COUNT 12.7 K/mm3 (4.0-10.0)
[2019-01-21 07:17] LABS: BASO % 0.2 % (0-2.0); EOS % 0.1 % (0-4.5); HEMATOCRIT 24.4 % (32.4-45.2); HEMOGLOBIN 8.4 GM/dL (10.7-15.3); LYMPH % 11.8 % (8-40); MCH 30.3 pg (25.7-33.7); MCHC 34.5 g/dl (32.0-36.0); MEAN CELL VOLUME 87.9 fl (80-96); MEAN PLT VOLUME 10.7 fl (7.5-11.1); MONO % 5.4 % (3.8-10.2); NEUT % 82.5 % (42.8-82.8); PLATELET COUNT 81 K/MM3 (134-434); RBC 2.78 M/mm3 (3.60-5.2); RDW 14.4 % (11.6-15.6); WHITE BLOOD COUNT 11.3 K/mm3 (4.0-10.0)
[2019-01-21] MEDS: ACETAMINOPHEN 325 MG TABLET (FP) PO PRN ×4 (09:19→21:05)
[2019-01-21] MEDS: METHYLERGONOVINE MALEATE 0.2 MG TABLET (FP) PO SCH ×4 (09:37→22:32)
--- NOTE | 2019-01-21 09:37 | PN ---
Progress Note (short form) - Note Progress Note: POD s/p c/s with duramorph. Pt with some itching, but improved with benadryl. No anesthetic issues/complications
[2019-01-21] MEDS ORDERED: ENOXAPARIN NA (PORCINE) 40 MG/0.4 ML DISP.SYRIN SQ SCH (10:00)
[2019-01-21] MEDS ORDERED: oxyCODONE HCL 5 MG TABLET PO PRN (10:57)
--- NOTE | 2019-01-21 11:25 | PN ---
Progress Note (short form) - Note Progress Note: 230 am called to see patient post c/s , trickling blood from vagina, hx of thrombocytopenia patient seen and exam VSS , no dizziness ,awake and alert abdomen soft, uterus firm, lochia minimal pelvic exam approx. 200 cc blood clot removed from lower uterine segment, no more active bleeding seen methergine given im, iv pitocin at 150 cc /hr monitor cbc and platelets monitor VS Problem List - Problems (1) Postmaturity , 40-42 weeks gestation Code(s): O48.0 - POST-TERM (2) Previous section complicating , antepartum condition or complication Code(s): O34.219 - MATERNAL CARE FOR UNSP TYPE SCAR FROM PREVIOUS DEL (3) Thrombocytopenia Code(s): D69.6 - THROMBOCYTOPENIA, UNSPECIFIED (4) Labor established Code(s): [id number] -
--- NOTE | 2019-01-21 11:29 | PN ---
Progress Note (short form) - Note Progress Note: no c/o minimal vaginal bleeding, no active vaginal bleeding seen , no dizziness CBC, BMP 01/21/19 06:55 01/20/19 03:15 Last Vital Signs Temp Pulse Resp BP Pulse Ox 99.5 F 101 H 18 114/67 99 01/21/19 09:07 01/21/19 09:07 01/21/19 09:09 01/21/19 09:07 01/20/19 19:30 abdomen soft, no distension, no cva uterus firm , incision dry, clean lochia minimal , no active vaginal bleeding seen impression post c/s day 1 . thrombocytopenia anemia vss stable plan oob, observe , monitor cbc, platelets, if symptomatic or further decrease in H&H will transfuse Problem List - Problems (1) Postmaturity , 40-42 weeks gestation Code(s): O48.0 - POST-TERM (2) Previous section complicating , antepartum condition or complication Code(s): O34.219 - MATERNAL CARE FOR UNSP TYPE SCAR FROM PREVIOUS DEL (3) Thrombocytopenia Code(s): D69.6 - THROMBOCYTOPENIA, UNSPECIFIED (4) Labor established Code(s): [id number] -
--- NOTE | 2019-01-21 12:37 | OP ---
DATE OF OPERATION: 01/20/2019 PREOPERATIVE DIAGNOSIS: 40.5 weeks, previous section, failed vaginal after , failed descent in the 2nd stage of labor. POSTOPERATIVE DIAGNOSIS: 40.5 weeks, previous section, failed vaginal after , failed descent in the 2nd stage of labor. PROCEDURE: Repeat low segment transverse section. SURGEON: Darrick Leslie MD [employer] OPERATOR: AUTUMN Schulz ANESTHESIA: Epidural. ANESTHESIOLOGIST: Dr. Farley. ESTIMATED BLOOD LOSS: 700 mL. DESCRIPTION OF PROCEDURE: The patient was taken to the operating room under adequate epidural anesthesia. Abdomen and perineum were prepped and draped. Pfannenstiel abdominal skin incision was made. Abdominal wall was cut layer by layer until the peritoneum was exposed and incised. Upon entering the abdominal cavity, lower uterine segment was identified, and uterovesical fold of peritoneum established. Bladder was pushed down. There was some peritoneal adhesion to the right uterine sidewall. These adhesions were grasped with a Ronel clamp and cut and adhesions were lysed. Then the bladder was further pushed down. A low transverse uterine incision was made. Incision extended laterally. Amniotic sac was entered. Clear fluid. Baby's head was very low in the pelvis and difficulty encountered to pull the head up from the pelvic through the incision. Then the vaginal pressure upward was applied by the pharmacy affairs assistant, and the head was from the pelvis and easily delivered. Nasopharynx was suctioned. Cord around the neck x1. Live baby was delivered without any difficulty. Placenta was delivered manually. Uterine cavity was cleaned of all remaining tissue. Uterine incision was closed in 2 layers, the first layer with 0 Biosyn continuous suture, the second layer with 0 Biosyn imbricating the 1st layer. Bladder flap was closed with 0 Biosyn continuous suture. Both tubes and ovaries were checked and normal. No active bleeding seen. All of the lap pad, sponge, and instrument counts were correct. Peritoneum was closed with 0 Biosyn continuous suture. Muscles were brought together with interrupted sutures of 0 Biosyn. Fascia was closed with 0 Biosyn continuous suture, subcutaneous fat interrupted suture of 0 Biosyn and the skin was closed with aurelia. The patient tolerated the procedure well and left the OR in good condition. Grabiel [id number]
[2019-01-21] MEDS: oxyCODONE HCL 5 MG TABLET PO PRN (14:55)
[2019-01-21] MEDS ORDERED: BISACODYL 10 MG SUPP.RECT RC PRN (18:35)
[2019-01-22] MEDS: CEFAZOLIN 1 GM/D5W 1 GM/50 ML BAG IVPB SCH ×2 (02:27→09:39)
[2019-01-22] MEDS: METHYLERGONOVINE MALEATE 0.2 MG TABLET (FP) PO SCH ×2 (02:27→06:01)
[2019-01-22] MEDS: ACETAMINOPHEN 325 MG TABLET (FP) PO PRN ×3 (02:46→16:49)
[2019-01-22] MEDS: oxyCODONE HCL 5 MG TABLET PO PRN ×3 (02:47→16:52)
[2019-01-22 06:46] LABS: BASO % 0.1 % (0-2.0); EOS % 0.4 % (0-4.5); HEMATOCRIT 24.6 % (32.4-45.2); HEMOGLOBIN 8.6 GM/dL (10.7-15.3); LYMPH % 11.9 % (8-40); MCHC 34.8 g/dl (32.0-36.0); MEAN CELL VOLUME 89.1 fl (80-96); MEAN PLT VOLUME 10.9 fl (7.5-11.1); MONO % 5.1 % (3.8-10.2); NEUT % 82.5 % (42.8-82.8); PLATELET COUNT 91 K/MM3 (134-434); RBC 2.76 M/mm3 (3.60-5.2); RDW 14.5 % (11.6-15.6); WHITE BLOOD COUNT 9.8 K/mm3 (4.0-10.0)
[2019-01-22 07:03] LABS: ANION GAP 9 MMOL/L (8-16); BLOOD UREA NITROGEN 5 mg/dL (7-18); CALCIUM 7.7 mg/dL (8.5-10.1); CHLORIDE 110 mmol/L (98-107); CO2 23 mmol/L (21-32); CREATININE 0.4 mg/dL (0.55-1.3); GLUCOSE,RANDOM 66 mg/dL (74-106); POTASSIUM 3.6 mmol/L (3.5-5.1); SODIUM 142 mmol/L (136-145)
--- NOTE | 2019-01-22 07:49 | PN ---
Post Progress Note - Subjective Subjective: 33 yo Para 2 status post delivery, seen and evaluated. Doing well. Post Day: 2 Type of Delivery: Repeat C/S Vital Signs: Vital Signs Temperature 98.4 F 01/22/19 06:00 Pulse Rate 97 H 01/22/19 06:00 Respiratory Rate 20 01/22/19 06:00 Blood Pressure 115/79 01/22/19 06:00 O2 Sat by Pulse Oximetry (%) 99 01/20/19 19:30 Breast Exam: Yes: Soft Uterus: Yes: Fundus Firm Incision: Yes: Dressing dry and intact Abdomen/GI: Yes: Abdomen soft, Tolerating PO Lochia: Yes: Rubra Lochia, amount: Small Extremities: Yes: Calves non-tender Activity: Ambulating - Labs Labs: CBC WBC 9.8 K/mm3 (4.0-10.0) 01/22/19 05:56 RBC 2.76 M/mm3 (3.60-5.2) L 01/22/19 05:56 Hgb 8.6 GM/dL (10.7-15.3) L 01/22/19 05:56 Hct 24.6 % (32.4-45.2) L 01/22/19 05:56 MCV 89.1 fl (80-96) 01/22/19 05:56 MCH 31.0 pg (25.7-33.7) 01/22/19 05:56 MCHC 34.8 g/dl (32.0-36.0) 01/22/19 05:56 RDW 14.5 % (11.6-15.6) 01/22/19 05:56 Plt Count 91 K/MM3 (134-434) L 01/22/19 05:56 MPV 10.9 fl (7.5-11.1) 01/22/19 05:56 Absolute Neuts (auto) 8.1 K/mm3 (1.5-8.0) H 01/22/19 05:56 Neutrophils % 82.5 % (42.8-82.8) 01/22/19 05:56 Lymphocytes % 11.9 % (8-40) 01/22/19 05:56 Monocytes % 5.1 % (3.8-10.2) 01/22/19 05:56 Eosinophils % 0.4 % (0-4.5) D 01/22/19 05:56 Basophils % 0.1 % (0-2.0) 01/22/19 05:56 Nucleated RBC % 0 % (0-0) 01/22/19 05:56 Problem List - Problems (1) Status post repeat low transverse section Code(s): Z98.891 - HISTORY OF UTERINE SCAR FROM PREVIOUS SURGERY Assessment/Plan Status post repeat Ambulation Analgesia as needed Continue routine care
[2019-01-22] MEDS: ELECTROLYTE-148 SOLN 1,000 ML IV SCH (10:17)
[2019-01-22] MEDS ORDERED: BISACODYL 10 MG SUPP.RECT RC PRN (15:57)
[2019-01-22] MEDS ORDERED: SENNOSIDES/DOCUSATE COMBO (SENNA PLUS) TABLET (UD) PO PRN (22:00)
[2019-01-23] MEDS: ACETAMINOPHEN 325 MG TABLET (FP) PO PRN ×2 (01:08→08:06)
[2019-01-23] MEDS: oxyCODONE HCL 5 MG TABLET PO PRN ×2 (01:08→08:04)
[2019-01-23 08:51] VITALS: BP 116/74; PULSE 101; TEMP 99.5
--- NOTE | 2019-01-29 16:29 | PATH ---
Surgical Pathology Report Patient Name: CHEIKH JURADO Med. Rec. #: [id number] /Age/Gender: 1985 (Age: 33) / F Account: [id number] Location: [facility] OBS/IMPORT/EXPORT ANALYST Taken: 01/20/2019 Received: 01/21/2019 Reported: 01/29/2019 Physicians: Darrick Leslie M.D. Specimen(s) Received PLACENTA Clinical History , 40.5 weeks, - failed, history of psoriasis Final Diagnosis PLACENTA, SECTION: 466 G THIRD TRIMESTER PLACENTA WITH TRIVASCULAR UMBILICAL CORD AND UNREMARKABLE PLACENTAL MEMBRANES. Electronically Signed Kalyani So M.D. Gross Description The specimen is received fresh labeled placenta and is a 466 gram, 19.0 x 17.5 x 2.4 cm. placenta with attached membranes and umbilical cord. The attached membranes are wong, translucent with focal opacities and insert marginally. The umbilical cord measures 18 cm. in length and averages 1.1 cm. in diameter. The cord inserts eccentrically, 6 cm. to the nearest margin. No true knots or strictures are identified. Cut surface of the umbilical cord reveals 3 vessels. The surface is kearney-blue with minimal fibrin deposition and appropriate caliber vessels. The maternal surface is red-brown with focal defects. Sectioning reveals red-brown, spongy parenchyma. No lesions are identified. Still Operator Gin sections are submitted in three cassettes as follows: 1- membrane rolls and umbilical cord; 2-3- full thickness sections of placenta. /01/28/2019 [place]01/28/2019
== END 2019-01-23 12:30 | disposition home or self-care (01) | DRG 540 ==
LOC: JDEL 02:15 → JLDR 03:40 → J3W 20:30
PROVIDERS: ADMIT Obstetrics & Gynecology; ATTEND Obstetrics & Gynecology
PROC: 10D00Z1 Extraction of Products of Conception, Low, Open Approach (ICD-10-PCS; principal; 2019-01-20)
DX: O48.0 Post-term pregnancy (principal); O62.0 Primary inadequate contractions; O34.219 Maternal care for unspecified type scar from previous cesarean delivery; O99.12 Other diseases of the blood and blood-forming organs and certain disorders involving the immune mechanism complicating childbirth; D69.6 Thrombocytopenia, unspecified; Z3A.40 40 weeks gestation of pregnancy; Z37.0 Single live birth
CPT/HCPCS: 36415; 59025; 80048; 80307; 82803; 85025; 85610; 85730; 86593; 86850; 86900; 86901; 87389; 88307-TC

== ENCOUNTER 2021-08-23 07:50 | Inpatient (IN) | payer OTHER ==
[2021-08-23] MEDS ORDERED: CITRIC ACID/SODIUM CITRATE 30 ML UNIT-DOSE CUP PO ONE (08:51)
[2021-08-23] MEDS ORDERED: ELECTROLYTE-148 SOLN 1,000 ML IV SCH (09:00)
[2021-08-23 09:08] VITALS: BMI 25.9
[2021-08-23] MEDS ORDERED: OXYTOCIN 20 UNITS in 0.9% NS 40 UNIT/2,000 ML INFUS.BAG IV ONE (11:31)
[2021-08-23] MEDS ORDERED: DEXAMETHASONE SOD PHOSPHATE 4 MG/1 ML VIAL ONE (11:35)
[2021-08-23] MEDS ORDERED: ceFAZolin SODIUM 1 GM VIAL ONE ×2 (11:35→18:19)
[2021-08-23] MEDS ORDERED: ONDANSETRON 4 MG/2 ML VIAL ONE (11:35)
[2021-08-23] MEDS ORDERED: morphine SULFATE (PF) 1 MG/2 ML SYRINGE ONE (11:35)
[2021-08-23] MEDS ORDERED: KETOROLAC TROMETHAMINE 30 MG/1 ML VIAL ONE (12:25)
[2021-08-23] MEDS ORDERED: diphenhydrAMINE HCL 25 MG CAPSULE (FP) PO PRN (12:34)
[2021-08-23] MEDS ORDERED: WITCH HAZEL 50% (TUCKS) 40 PAD/JAR PAD TP PRN (12:34)
[2021-08-23] MEDS ORDERED: METHYLERGONOVINE MALEATE 0.2 MG/1 ML AMP IM PRN (12:34)
[2021-08-23] MEDS ORDERED: BENZOCAINE 28 GM HEMORRHOIDAL OINTMENT TP PRN (12:34)
[2021-08-23] MEDS ORDERED: oxyCODONE HCL 5 MG TABLET PO PRN (12:34)
[2021-08-23] MEDS ORDERED: BENZOCAINE 20% 57 GM BOTTLE TP PRN (12:34)
[2021-08-23] MEDS ORDERED: ACETAMINOPHEN 325 MG TABLET (FP) PO PRN (12:35)
[2021-08-23] MEDS ORDERED: ONDANSETRON 4 MG/2 ML VIAL IVPUSH PRN (12:41)
[2021-08-23] MEDS ORDERED: ACETAMINOPHEN 1000 MG/100 ML VIAL IVPB PRN (12:43)
[2021-08-23] MEDS ORDERED: OXYTOCIN 20 UNITS in 0.9% NS 20 UNIT/1,000 ML INFUS.BAG IV SCH (12:45)
[2021-08-23] MEDS ORDERED: DEXTROSE 5%-LACTATED RINGERS 1,000 ML IV SCH (12:45)
[2021-08-23] MEDS: IBUPROFEN 800 MG/8 ML IJ IVPB PRN (17:16)
[2021-08-23] MEDS ORDERED: DEXTROSE 5%-WATER - 50 ML IVPB ONE (18:18)
[2021-08-23] MEDS: CEFAZOLIN 1 GM in DEXTROSE 5%-WATER - 50 ML IVPB SCH (18:35)
[2021-08-24] MEDS: CEFAZOLIN 1 GM in DEXTROSE 5%-WATER - 50 ML IVPB SCH (02:06)
[2021-08-24] MEDS ORDERED: ceFAZolin SODIUM 1 GM VIAL ONE (02:57)
[2021-08-24] MEDS ORDERED: DEXTROSE 5%-WATER - 50 ML IVPB ONE (02:57)
[2021-08-24] MEDS: IBUPROFEN 800 MG/8 ML IJ IVPB PRN (03:07)
[2021-08-24] MEDS: SIMETHICONE 80 MG TAB.CHEW (FP) PO PRN ×4 (03:08→21:39)
[2021-08-24 07:40] LABS: BASO % 0.2 % (0-2.0); EOS % 0.4 % (0-4.5); HEMATOCRIT 26.5 % (32.4-45.2); HEMOGLOBIN 8.9 GM/dL (10.7-15.3); LYMPH % 16.9 % (8-40); MCH 25.6 pg (25.7-33.7); MCHC 33.6 g/dl (32.0-36.0); MEAN CELL VOLUME 76.1 fl (80-96); MEAN PLT VOLUME 8.3 fl (7.5-11.1); MONO % 7.3 % (3.8-10.2); NEUT % 75.2 % (42.8-82.8); PLATELET COUNT 116 10^3/uL (134-434); RBC 3.48 M/mm3 (3.60-5.2); RDW 19.5 % (11.6-15.6)
[2021-08-24] MEDS: ENOXAPARIN NA (PORCINE) 40 MG/0.4 ML DISP.SYRIN SQ SCH (09:02)
[2021-08-24] MEDS ORDERED: DIPHTH,PERTUSS(ACELL),TET 0.5 ML DISP.SYRIN IM ONE (10:00)
[2021-08-24] MEDS: IBUPROFEN 600 MG TABLET (FP) PO PRN ×3 (11:03→21:39)
[2021-08-24] MEDS ORDERED: BISACODYL 10 MG SUPP.RECT PR PRN (12:34)
[2021-08-25] MEDS: oxyCODONE HCL 5 MG TABLET PO PRN ×3 (08:54→20:52)
[2021-08-25] MEDS: SIMETHICONE 80 MG TAB.CHEW (FP) PO PRN ×3 (08:54→20:51)
[2021-08-25] MEDS: ENOXAPARIN NA (PORCINE) 40 MG/0.4 ML DISP.SYRIN SQ SCH (09:43)
[2021-08-25] MEDS ORDERED: SENNOSIDES/DOCUSATE COMBO (SENNA PLUS) TABLET (UD) PO PRN (22:00)
[2021-08-26] MEDS: IBUPROFEN 600 MG TABLET (FP) PO PRN (08:06)
[2021-08-26] MEDS: SIMETHICONE 80 MG TAB.CHEW (FP) PO PRN (08:06)
[2021-08-26 08:49] LABS: BASO % 0.4 % (0-2.0); EOS % 1.9 % (0-4.5); HEMATOCRIT 30.1 % (32.4-45.2); HEMOGLOBIN 10.1 GM/dL (10.7-15.3); LYMPH % 22.8 % (8-40); MCH 25.6 pg (25.7-33.7); MCHC 33.7 g/dl (32.0-36.0); MEAN CELL VOLUME 76.1 fl (80-96); MEAN PLT VOLUME 9.1 fl (7.5-11.1); MONO % 6.6 % (3.8-10.2); NEUT % 68.3 % (42.8-82.8); PLATELET COUNT 148 10^3/uL (134-434); RBC 3.95 M/mm3 (3.60-5.2); RDW 20.2 % (11.6-15.6); WHITE BLOOD COUNT 9.6 K/mm3 (4.0-10.0)
[2021-08-26 09:05] VITALS: BP 112/76; PULSE 91; TEMP 98.4
[2021-08-26] MEDS: ENOXAPARIN NA (PORCINE) 40 MG/0.4 ML DISP.SYRIN SQ SCH (10:19)
== END 2021-08-26 11:40 | disposition home or self-care (01) | DRG 540 ==
LOC: JLDR 07:50 → J3W 14:25
PROVIDERS: ADMIT Obstetrics & Gynecology; ATTEND Obstetrics & Gynecology
PROC: 10D00Z1 Extraction of Products of Conception, Low, Open Approach (ICD-10-PCS; principal; 2021-08-23)
DX: O34.219 Maternal care for unspecified type scar from previous cesarean delivery (principal); Z3A.39 39 weeks gestation of pregnancy; Z37.0 Single live birth
CPT/HCPCS: 36415; 85025; 90715

== ENCOUNTER 2023-04-26 17:42 | Emergency (ER) | payer OTHER ==
[2023-04-26 17:50] VITALS: BP 116/86; PULSE 81; RESP 18; TEMP 98.2; BMI 22.3
[2023-04-26] MEDS ORDERED: SODIUM CHLORIDE 0.9% 1000 ML INFUS.BAG IV ONE (18:16)
[2023-04-26] MEDS ORDERED: ACETAMINOPHEN 1000 MG/100 ML BAG IVPB ONE (18:16)
[2023-04-26] MEDS ORDERED: ACETAMINOPHEN INJECTION 100 ML IVPB ONE (18:25)
[2023-04-26 19:05] LABS: HEMOGLOBIN 12.7 GM/dL (10.7-15.3); MCHC 33.5 g/dl (32.0-36.0); MEAN CELL VOLUME 83.4 fl (80-96); MEAN PLT VOLUME 10.5 fl (7.5-11.1); PLATELET COUNT 172 10^3/uL (134-434); RBC 4.56 M/mm3 (3.60-5.2); RDW 14.3 % (11.6-15.6); WHITE BLOOD COUNT 6.8 K/mm3 (4.0-10.0)
[2023-04-26 19:24] LABS: POTASSIUM 4.9 mmol/L (3.5-5.1)
[2023-04-26 19:28] LABS: BLOOD UREA NITROGEN 12.5 mg/dL (7-18); CALCIUM 9.7 mg/dL (8.5-10.1)
[2023-04-26 19:32] LABS: CREATININE 0.5 mg/dL (0.55-1.3)
[2023-04-26 19:33] LABS: BILIRUBIN,TOTAL 0.4 mg/dL (0.2-1); TOT PROT 7.5 g/dl (6.4-8.2)
== END 2023-04-26 21:52 | disposition home or self-care (01) ==
LOC: JER 17:42
PROC: 3E033NZ Introduction of Analgesics, Hypnotics, Sedatives into Peripheral Vein, Percutaneous Approach (ICD-10-PCS; principal; 2023-04-26)
DX: O03.9 Complete or unspecified spontaneous abortion without complication (principal); Z3A.16 16 weeks gestation of pregnancy
CPT/HCPCS: 36415; 76830-TC; 80053; 84702; 85027; 86850; 86900; 86901; 99284-25